=== PATIENT | male | born 1935 | race American Indian/Alaskan Native ===

== ENCOUNTER 2018-02-05 11:22 | Day surgery (SDC) | payer MEDICAID ==
[2018-02-05] MEDS ORDERED: NACL BACTERIOSTATIC INFILTRATI ONE (11:55)
--- NOTE | 2018-02-05 12:07 | Anesthesia Day of Surgery ---
Anesthesia Day of Surgery - Day of Surgery Patient Examined: Yes Patient H&P Reviewed: Yes Patient is NPO: Yes Beta Blockers: No Cardiac Clearance: No Pulmonary Clearance: No
--- NOTE | 2018-02-05 12:09 | Anesthesia Consultation ---
Anesthesia Consult and Med Hx - Airway Anesthetic Teeth Evaluation: Edentulous (uppper edentulous ) Mallampati Class: Class III Intubation Access Assessment: Possibly Difficult - Pulmonary Exam CTA: Yes - Cardiac Exam Cardiac Exam: No Murmur - Pre-Operative Health Status ASA Pre-Surgery Classification: ASA3 Proposed Anesthetic Plan: General - Pulmonary Hx Smoking: No Hx Asthma: No Hx Respiratory Symptoms: No SOB: No COPD: No Home Oxygen Therapy: No Hx Pneumonia: No Hx Sleep Apnea: No (NAVA PRE SCREEN HIGH RISK) - Cardiovascular System Hx Hypertension: Yes (X 10 YRS) Hx Coronary Artery Disease: No Hx Heart Attack/AMI: No Hx Angina: No Hx Percutaneous Transluminal Coronary Angioplasty (PTCA): No Hx Cardia Arrhythmia: No Hx Pacemaker: No Hx Internal Defibrillator: No Hx Valvular Heart Disease: No Hx Heart Murmur: No Hx Peripheral Vascular Disease: No - Central Nervous System Hx Neuromuscular Disorder: No Hx Seizures: No CVA: No Hx Back Pain: Yes Hx Psychiatric Problems: No - Gastrointestinal Hx Ulcer: No Hx Gastroesophageal Reflux Disease: No - Endocrine Hx Renal Disease: No Hx End Stage Renal Disease: No Hx Cirrhosis: No Hx Liver Disease: No Hx Insulin Dependent Diabetes: No Hx Non-Insulin Dependent Diabetes: No Hx Thyroid Disease: No Hx Hypothyroidism: No Hx Hyperthyroidism: No - Hematic Hx Anemia: Yes Hx Sickle Cell Disease: No - Other Systems Hx Alcohol Use: No Hx Substance Use: No Hx Cancer: No Hx Obesity: No
[2018-02-05] MEDS ORDERED: DIPRIVAN 10 MG/ML IV ONE (12:28)
[2018-02-05] MEDS ORDERED: ZEMURON IV ONE (12:28)
[2018-02-05] MEDS ORDERED: XYLOCAINE MPF 2% ONE (12:28)
[2018-02-05] MEDS ORDERED: SUBLIMAZE ONE (12:28)
[2018-02-05] MEDS ORDERED: LACTATED RINGERS 1,000 ML ONE (12:29)
[2018-02-05 12:33] LABS: Hematocrit 37.4 % (35.5-45.6); Hemoglobin 12.2 gm/dl (11.8-15.2)
[2018-02-05] MEDS ORDERED: ZOFRAN ONE (12:38)
[2018-02-05] MEDS ORDERED: WATER FOR IRRIG STERILE IR ONE (12:38)
[2018-02-05] MEDS ORDERED: NACL 0.9% IR ONE (12:38)
[2018-02-05] MEDS ORDERED: NACL 0.9% 1000 ML 1,000 ML IV SCH (13:00)
[2018-02-05] MEDS ORDERED: PEPCID IV SCH (13:00)
[2018-02-05] MEDS ORDERED: ePHEDrine SULFATE ONE ×2 (13:23→15:12)
[2018-02-05] MEDS ORDERED: ROBINUL ONE (14:26)
[2018-02-05] MEDS ORDERED: NEOSTIGMINE ONE (14:26)
[2018-02-05] MEDS ORDERED: LASIX ONE (14:35)
[2018-02-05] MEDS ORDERED: ePHEDrine SULFATE IV PRN (15:10)
--- NOTE | 2018-02-05 15:16 | Post Operative Note ---
Date of procedure: 02/05/18 Pre-op diagnosis: ca prostate Post-op diagnosis: same Findings: as above Procedure: cysto cryoablation Anesthesia: JANICE Surgeon: DANIEL SCHULTZ Estimated blood loss: minimal Pathology: none Condition: stable Disposition: PACU
--- NOTE | 2018-02-05 15:18 | Discharge Summary ---
Short Stay Discharge Plan Activity: other (no straining .. ice packs ) Weight Bearing Status: Full Weight Bearing Diet: regular, low salt Wound: open to air Special Instructions: other (ice in rr and 24 hours) Follow up with: DR SETH [Other] - 7 Days DANIEL SCHULTZ MD [Staff Physician] - 7 Days
--- NOTE | 2018-02-05 15:22 | Post Anesthesia Evaluation ---
- Post Anesthesia Evaluation Patient Participated: Yes Airway Patent: Yes Stable Respiratory Function: Yes Nausea/Vomiting: No Temp > 96.8F: Yes Pain Manageable: Yes Adequeate Hydration: Yes Anesthesia Complications: No
[2018-02-05] MEDS ORDERED: PERCOCET 5/325 PO NR (16:29)
--- NOTE | 2018-02-05 17:19 | Operative Report ---
PREOPERATIVE DIAGNOSES: Extensive prostate, localized prostate cancer. POSTOPERATIVE DIAGNOSES: Extensive prostate, localized prostate cancer. PROCEDURE: Cystoscopy and cryoablation of prostate. SURGEON: Joshua Pacheco MD ANESTHESIA: General. FINDINGS: The gentleman with extensive prostate cancer Mcnary 7 some 3+4 sum 4+3 bilateral. He now presents for cryoablation. He was given the options of hormonal therapy observation, radiation therapy. All risks and implications were discussed. DESCRIPTION OF PROCEDURE: The patient was brought to the operating room and placed on the operating table. Following induction of anesthesia, placed in lithotomy position, prepped and draped in usual sterile fashion. Castorena catheter was inserted without difficulty. The ultrasound was placed and all the cryoprobes were checked and functioning well. At this point, we measured the gland approximately 30-40 grams. Once we got a good measurement and we used the computer to get the basic coordinates for the initial needle placement, probes 1 and 2 were placed Denonvilliers was placed within the gland and within inside Denonvilliers fascia, a little more to the right side. The urethra was deviated a little to the left side ____ anterior. At this point, probes 5 and 6 and then 3 and 4 were placed. Excellent placements were obtained. There was little movement of the gland. After 1 and 2 were placed, we had to adapt accordingly. At this point, the sphincter probe was also in good placement without difficulty. We then removed the Castorena and under ultrasound guidance placed a cystoscopy and a wire and the warmer was easily placed. It looks like there were no bladder lesions noted. 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 There were no bladder injuries and no urethral injuries. The next step was to begin the freeze. We rechecked in both images and the probes were in good position. The freezing was accomplished starting at 75 from 1 and 2 and then gradually come down to 60 at 3 and 4 and then 5 and 6, 25-40 as needed. Excellent freeze was obtained. A full flow was carried out. A second freeze was carried on symmetrical fashion. The patient tolerated the procedure well. A second thaw was carried out. There were no complications. A 20- minute warming thaw, an 8-minute thaw, and then warming was carried out with insertion of Castorena catheter. The patient tolerated the procedure well. No significant complication. The urine was clear, brought to recovery in stable condition. JOB# [id number]
[2018-02-05 18:01] VITALS: BP 132/79
== END 2018-02-05 17:06 | disposition home or self-care (01) ==
LOC: OR 11:22
PROVIDERS: ATTEND Urology
DX: C61 Malignant neoplasm of prostate (principal); I10 Essential (primary) hypertension; D64.9 Anemia, unspecified
CPT/HCPCS: 36415; 55873; 82962; 85014; 85018; A4217; C2618; J1940; J2405; J2704; J2710; J3010; J7030; J7120